=== PATIENT | male | born 1985 | race Caucasian/White ===

== ENCOUNTER 2017-01-04 21:52 | Emergency (ER) | payer OTHER ==
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
--- NOTE | 2017-01-05 03:10 | ED DISCHARGE INSTRUCTIONS ---
Patient: JOSE ANTONIO RUIZ General Instructions [facility] VisitID: [id number] [place] [address] 31y, M Registration Date/Time: 01/04/2017 Multiple superficial abrasions. (lower back, buttocks, right shoulder, left elbow, bilateral legs and right thumb). ADDITIONAL INFORMATION Abrasions Abrasions are skin scrapes. Their treatment depends on how large and deep the abrasion is. Home Care: If you were given a bandage, change it once a day. If your bandage sticks to the wound, soak it in warm water until it loosens. Wash the area with soap and water to remove all the cream/ointment. You may do this in a sink, under a tub faucet or shower. Rinse off the soap and pat dry with a clean towel. Reapply cream/ointment according to your doctor's instructions. This will prevent infection and help prevent the bandage from sticking. Cover the wound with a fresh non-stick bandage (Telfa). Repeat steps 1 to 4 daily, or as directed by your doctor. If the bandage becomes wet or dirty, change it as soon as possible. You may use acetaminophen (Tylenol) or ibuprofen (Motrin, Advil) to control pain, unless another pain medicine was prescribed. [ NOTE : If you have chronic liver or kidney disease or ever had a stomach ulcer or GI bleeding, talk with your doctor before using these medicines.] Do not use ibuprofen in children under six months of age. Follow Up with your physician or this facility as directed by our staff. Most skin wounds heal within ten days. However, an infection may occur despite proper treatment. Therefore, look for the early signs of infection listed below. Get Prompt Medical Attention if any of the following occur: Increasing pain in the wound Increasing redness or swelling Pus coming from the wound Fever of 100.4F (38C) or higher, or as directed by your healthcare provider You have been given the following additional information: Abrasion (Electronically signed by Anthony Rodriguez MD 01/05/2017 3:09)
--- NOTE | 2017-01-05 03:10 | ED MAR SUMMARY ---
..... Medication Administration Record [facility] [address], [place] [id number] Patient: JOSE ANTONIO RUIZ Visit ID: [id number] 31y, M Weight: 86.1 kg Height/Length: 69 in BMI: 28.1 ALLERGIES: No Known Drug Allergy
--- NOTE | 2017-01-05 03:10 | ED MED RECONCILIATION SUMMARY ---
Patient: JOSE ANTONIO RUIZ Medication Reconciliation Report [facility] VisitID: [id number] [address] [place] [place] [address] 31y, M Registration Date/Time: 01/04/2017 Weight: 86.1 kg Height/Length: 69 in. BMI: 28.1 ALLERGIES: No Known Drug Allergy The patient's Home Medications are listed below: NONE. The source(s) of the original Home Medication information: Not obtained. The following Medications were given to the patient in the Emergency Department: None. The following Medications were prescribed to the patient: None.
--- NOTE | 2017-01-05 03:10 | ED DISCHARGE INSTRUCTIONS ---
Patient: JOSE ANTONIO RUIZ General Instructions [facility] VisitID: [id number] [place] [address] 31y, M Registration Date/Time: 01/04/2017 Multiple superficial abrasions. (lower back, buttocks, right shoulder, left elbow, bilateral legs and right thumb). ADDITIONAL INFORMATION Abrasions Abrasions are skin scrapes. Their treatment depends on how large and deep the abrasion is. Home Care: If you were given a bandage, change it once a day. If your bandage sticks to the wound, soak it in warm water until it loosens. Wash the area with soap and water to remove all the cream/ointment. You may do this in a sink, under a tub faucet or shower. Rinse off the soap and pat dry with a clean towel. Reapply cream/ointment according to your doctor's instructions. This will prevent infection and help prevent the bandage from sticking. Cover the wound with a fresh non-stick bandage (Telfa). Repeat steps 1 to 4 daily, or as directed by your doctor. If the bandage becomes wet or dirty, change it as soon as possible. You may use acetaminophen (Tylenol) or ibuprofen (Motrin, Advil) to control pain, unless another pain medicine was prescribed. [ NOTE : If you have chronic liver or kidney disease or ever had a stomach ulcer or GI bleeding, talk with your doctor before using these medicines.] Do not use ibuprofen in children under six months of age. Follow Up with your physician or this facility as directed by our staff. Most skin wounds heal within ten days. However, an infection may occur despite proper treatment. Therefore, look for the early signs of infection listed below. Get Prompt Medical Attention if any of the following occur: Increasing pain in the wound Increasing redness or swelling Pus coming from the wound Fever of 100.4F (38C) or higher, or as directed by your healthcare provider You have been given the following additional information: Abrasion (Electronically signed by Anthony Rodriguez MD 01/05/2017 3:09)
--- NOTE | 2017-01-05 03:10 | ED MAR SUMMARY ---
..... Medication Administration Record [facility] [address] [place], [place] [id number] Patient: JOSE ANTONIO RUIZ Visit ID: [id number] 31y, M Weight: 86.1 kg Height/Length: 69 in BMI: 28.1 ALLERGIES: No Known Drug Allergy
--- NOTE | 2017-01-05 03:10 | ED MED RECONCILIATION SUMMARY ---
Patient: JOSE ANTONIO RUIZ Medication Reconciliation Report [facility] VisitID: [id number] [address] [place] [address] 31y, M Registration Date/Time: 01/04/2017 Weight: 86.1 kg Height/Length: 69 in. BMI: 28.1 ALLERGIES: No Known Drug Allergy The patient's Home Medications are listed below: NONE. The source(s) of the original Home Medication information: Not obtained. The following Medications were given to the patient in the Emergency Department: None. The following Medications were prescribed to the patient: None.
== END 2017-01-04 22:50 | disposition left against medical advice (07) ==
LOC: ED SRH 21:52
DX: S30.810A Abrasion of lower back and pelvis, initial encounter (principal); Y92.410 Unspecified street and highway as the place of occurrence of the external cause; S40.211A Abrasion of right shoulder, initial encounter; S50.312A Abrasion of left elbow, initial encounter; S80.811A Abrasion, right lower leg, initial encounter; V58.0XXA Driver of pick-up truck or van injured in noncollision transport accident in nontraffic accident, initial encounter; S60.311A Abrasion of right thumb, initial encounter; S80.812A Abrasion, left lower leg, initial encounter; Y93.89 Activity, other specified; Y99.8 Other external cause status